=== PATIENT | male | born 1990 | race Caucasian/White ===

== ENCOUNTER 2017-12-25 02:18 | Emergency (ER) | payer SELFPAY ==
[~2017-12-25] VITALS: Ht 172.7 cm; Wt 90.7 kg
[2017-12-25 02:20] VITALS: Ht 172.7 cm; Wt 90.7 kg
[2017-12-25] MEDS ORDERED: ULTRAM50 MG PO (03:47)
[2017-12-25 03:58] VITALS: BP 135/71
== END 2017-12-25 03:59 | disposition home or self-care (01) ==
LOC: D.ER 02:18
DX: S09.93XA Unspecified injury of face, initial encounter (principal); Y04.2XXA Assault by strike against or bumped into by another person, initial encounter; Y93.89 Activity, other specified; Y92.89 Other specified places as the place of occurrence of the external cause; T14.8XXA Other injury of unspecified body region, initial encounter; M54.2 Cervicalgia; F17.200 Nicotine dependence, unspecified, uncomplicated